=== PATIENT | female | born 2000 | race African-American/Black ===

== ENCOUNTER 2023-02-22 04:15 | Inpatient (IN) | payer OTHER ==
[2023-02-22] MEDS ORDERED: DEXTROSE 5%-LACTATED RINGERS 1,000 ML IV ONE (05:00)
[2023-02-22] MEDS ORDERED: DEXTROSE 5%-LACTATED RINGERS 1,000 ML IV SCH (06:10)
[2023-02-22 11:06] VITALS: BMI 32.4
[2023-02-22 11:33] LABS: BASO % 0.1 % (0-2.0); EOS % 0.4 % (0-4.5); HEMATOCRIT 29.9 % (32.4-45.2); HEMOGLOBIN 10.6 GM/dL (10.7-15.3); LYMPH % 16.1 % (8-40); MCH 27.9 pg (25.7-33.7); MCHC 35.6 g/dl (32.0-36.0); MEAN CELL VOLUME 78.4 fl (80-96); MEAN PLT VOLUME 8.5 fl (7.5-11.1); MONO % 6.2 % (3.8-10.2); NEUT % 77.2 % (42.8-82.8); PLATELET COUNT 204 10^3/uL (134-434); RBC 3.81 M/mm3 (3.60-5.2); RDW 16.7 % (11.6-15.6)
[2023-02-22 11:37] LABS: PROTHROMBIN TIME (PATIENT) 11.6 SEC (9.7-13.0)
[2023-02-22] MEDS ORDERED: FENTANYL/BUPIVACAINE/NS/PF - PCEA - 50 ML DISP.SYRIN EP ONE ×2 (12:00→16:59)
[2023-02-22 12:10] LABS: POTASSIUM 4.4 mmol/L (3.5-5.1)
[2023-02-22 12:12] LABS: CALCIUM 8.8 mg/dL (8.5-10.1)
[2023-02-22 12:16] LABS: CREATININE 0.6 mg/dL (0.55-1.3)
[2023-02-22] MEDS ORDERED: FENTANYL CITRATE/PF 50 MCG/ML VIAL ONE (12:22)
[2023-02-22] MEDS ORDERED: OXYTOCIN 30 UNITS in 0.9% NS 30 UNIT/500 ML INFUS.BAG IVPB SCH (13:00)
[2023-02-22] MEDS ORDERED: OXYTOCIN 30 UNITS in 0.9% NS 30 UNIT/500 ML INFUS.BAG IVPB ONE ×2 (13:27→21:35)
[2023-02-22] MEDS ORDERED: NALOXONE HCL 0.4 MG/ML VIAL IVPUSH PRN (14:40)
[2023-02-22] MEDS ORDERED: FENTANYL/BUPIVACAINE/NS/PF - PCEA - 50 ML DISP.SYRIN EP SCH (14:45)
[2023-02-22] MEDS: FENTANYL/BUPIVACAINE/NS/PF - PCEA - 50 ML DISP.SYRIN EP SCH (17:10)
[2023-02-22] MEDS ORDERED: OXYTOCIN 20 UNITS in 0.9% NS 20 UNIT/1,000 ML INFUS.BAG IV ONE (19:07)
[2023-02-22] MEDS ORDERED: ONDANSETRON 4 MG/2 ML VIAL IVPUSH PRN (21:11)
[2023-02-22] MEDS ORDERED: LIDO 2%/EPI 1:200000 PRESRVFRE (20 ML SDVIAL) ONE (21:35)
[2023-02-22] MEDS ORDERED: ceFAZolin SODIUM 1 GM VIAL ONE (21:53)
[2023-02-22] MEDS ORDERED: DEXAMETHASONE SOD PHOSPHATE 4 MG/1 ML VIAL ONE (21:56)
[2023-02-22] MEDS ORDERED: morphine SULFATE/PF 1 MG/2 ML (2cc Syringe - QUVA) ONE (21:56)
[2023-02-22] MEDS ORDERED: ONDANSETRON 4 MG/2 ML VIAL ONE (21:56)
[2023-02-22] MEDS ORDERED: OXYTOCIN 10 UNITS/ML VIAL ONE ×2 (22:41)
[2023-02-22] MEDS: OXYTOCIN 20 UNITS in 0.9% NS 20 UNIT/1,000 ML INFUS.BAG IV SCH (23:00)
[2023-02-22] MEDS ORDERED: ACETAMINOPHEN INJECTION 100 ML IVPB ONE (23:25)
[2023-02-22] MEDS ORDERED: IBUPROFEN 800 MG/8 ML IJ IVPB PRN (23:26)
[2023-02-22] MEDS ORDERED: ONDANSETRON 4 MG/2 ML VIAL IVPB PRN (23:26)
[2023-02-22] MEDS ORDERED: ACETAMINOPHEN 1000 MG/100 ML BAG IVPB PRN (23:26)
[2023-02-22] MEDS ORDERED: SENNOSIDES/DOCUSATE COMBO (SENNA PLUS) TABLET (UD) PO PRN (23:26)
[2023-02-22] MEDS ORDERED: oxyCODONE HCL 5 MG TABLET PO PRN (23:26)
[2023-02-23] MEDS: CEFAZOLIN 1 GM in DEXTROSE 5%-WATER - 50 ML IVPB SCH ×2 (04:54→12:41)
[2023-02-23] MEDS: OXYTOCIN 20 UNITS in 0.9% NS 20 UNIT/1,000 ML INFUS.BAG IV SCH (06:30)
[2023-02-23 07:44] LABS: BASO % 0.1 % (0-2.0); LYMPH % 7.9 % (8-40); MCH 28.8 pg (25.7-33.7); MCHC 36.1 g/dl (32.0-36.0); MEAN CELL VOLUME 79.9 fl (80-96); MEAN PLT VOLUME 9.2 fl (7.5-11.1); MONO % 4.1 % (3.8-10.2); NEUT % 87.9 % (42.8-82.8); PLATELET COUNT 196 10^3/uL (134-434); RBC 3.13 M/mm3 (3.60-5.2); RDW 16.6 % (11.6-15.6); WHITE BLOOD COUNT 15.2 K/mm3 (4.0-10.0)
[2023-02-23 10:47] LABS: POC NITRAZINE NEG
[2023-02-23] MEDS: FERROUS SO4 325 MG TABLET (FP) PO SCH ×2 (12:40→17:38)
[2023-02-23] MEDS: ASCORBIC ACID 500 MG TABLET (FP) PO SCH (12:40)
[2023-02-23] MEDS: IBUPROFEN 600 MG TABLET (FP) PO PRN ×2 (15:05→21:52)
[2023-02-23] MEDS: SIMETHICONE 80 MG TAB.CHEW (FP) PO PRN (21:52)
[2023-02-23] MEDS ORDERED: BISACODYL 10 MG SUPP.RECT RC PRN (23:27)
[2023-02-24] MEDS: IBUPROFEN 600 MG TABLET (FP) PO PRN ×3 (08:50→21:31)
[2023-02-24] MEDS: SIMETHICONE 80 MG TAB.CHEW (FP) PO PRN ×3 (08:53→21:31)
[2023-02-24] MEDS: FERROUS SO4 325 MG TABLET (FP) PO SCH ×3 (08:53→17:55)
[2023-02-24] MEDS: ASCORBIC ACID 500 MG TABLET (FP) PO SCH (10:28)
[2023-02-24] MEDS: ACETAMINOPHEN 325 MG TABLET (FP) PO PRN (11:28)
[2023-02-24] MEDS: FENTANYL/BUPIVACAINE/NS/PF - PCEA - 50 ML DISP.SYRIN EP SCH (19:22)
[2023-02-25] MEDS: IBUPROFEN 600 MG TABLET (FP) PO PRN (05:26)
[2023-02-25] MEDS: ACETAMINOPHEN 325 MG TABLET (FP) PO PRN (08:40)
[2023-02-25] MEDS: ASCORBIC ACID 500 MG TABLET (FP) PO SCH ×2 (08:40→11:06)
[2023-02-25] MEDS: FERROUS SO4 325 MG TABLET (FP) PO SCH ×2 (08:40→12:08)
[2023-02-25 10:29] VITALS: BP 123/77; PULSE 100; RESP 16; TEMP 98
== END 2023-02-25 12:45 | disposition home or self-care (01) | DRG 540 ==
LOC: JDEL 04:15 → JLDR 09:55 → J3W 02-23 01:18
PROVIDERS: ADMIT Family Medicine; ATTEND Specialist
PROC: 10D00Z1 Extraction of Products of Conception, Low, Open Approach (ICD-10-PCS; principal; 2023-02-22)
DX: O76 Abnormality in fetal heart rate and rhythm complicating labor and delivery (principal); O62.9 Abnormality of forces of labor, unspecified; Z3A.39 39 weeks gestation of pregnancy; Z37.0 Single live birth
CPT/HCPCS: 36415; 59025; 80048; 83986-QW; 85025; 85610; 85730; 86780; 86850; 86900; 86901; 88307-TC